=== PATIENT | male | born 1985 | race Caucasian/White ===

== ENCOUNTER 2023-07-23 15:46 | Emergency (ER) | payer MEDICAID, SELFPAY ==
[2023-07-23 16:00] VITALS: BP 146/100; BP 99/61; PULSE 71; PULSE 72; RESP 16; TEMP 36.6; O2SAT 96; O2SAT 97; BMI 31.1
--- NOTE | 2023-07-23 19:20 | ED.GENADULT ---
HPI - General Adult General Chief complaint: General Medical Stated complaint: abcess Time Seen by Provider: 07/23/23 19:20 History of Present Illness HPI narrative: The patient is a 38-year-old male who was currently an inpatient at the [facility]. He says that about 5 days ago he injected IV drugs into his left antecubital fossa. The next day he started to have signs of an infection which has been getting worse over the last several days. He has not had a fever. He has pain and swelling at the antecubital fossa but does not feel ill otherwise. He was sent to the emergency room from the [facility] for management of this acute medical issue. Related Data Previous Rx's ?Medication ?Instructions ?Recorded cephalexin 500 mg capsule 500 mg PO QID 10 days #40 caps 07/23/23 cephalexin 500 mg capsule 500 mg PO QID 10 days #40 caps 07/23/23 sulfamethoxazole 800 1 tab PO BID 10 days #20 tabs 07/23/23 mg-trimethoprim 160 mg tablet sulfamethoxazole 800 1 tab PO BID #20 tabs 07/23/23 mg-trimethoprim 160 mg tablet (Bactrim DS) Allergies Allergy/AdvReac Type Severity Reaction Status Date / Time No Known Allergies Allergy Verified 07/23/23 16:04 Review of Systems Review of Systems: Yes all other systems are reviewed and are negative [facility] Social History Social History Smoked in Last 30 Days: Yes Use of substances other than those prescribed or required for medical reasons: Yes Substance Use Type: Crack/Cocaine, Heroin and IV Drugs Last Used Substance: Days (ago) Advance Directives: No Advance Directives Information Provided: No Physical Exam ED Vital Signs: Vital Signs - 24 hr 07/23/23 16:00 07/23/23 19:31 07/23/23 21:11 Temperature 97.8 F 98.0 F 98.1 F Pulse Rate 72 58 62 Respiratory Rate 16 16 16 Blood Pressure 99/61 112/58 L 109/59 L Pulse Oximetry 96 99 97 Oxygen Delivery Method Room Air Room Air Room Air 07/23/23 22:20 Temperature 98.1 F Pulse Rate 62 Respiratory Rate 16 Blood Pressure 109/59 L Pulse Oximetry 97 Oxygen Delivery Method Room Air BMI result Body Mass Index 31.1 Const Other: The patient is awake, alert, pleasant, cooperative. He does not appear in acute distress. HENMT Other: Face is symmetrical. Mucous membranes moist. Eyes Other: Pupils are round equal, conjunctivae are clear, extraocular movements intact Neck Neck: Yes no JVD Resp Effort & Inspection: normal respiratory effort Auscultation: clear to auscultation bilaterally Cardio Rate: regular rate Rhythm: regular rhythm Heart sounds: S1 normal heart sound present and S2 normal heart sound present Skin Other: There is an area of redness and swelling and tenderness at the medial aspect of the right antecubital fossa. The swelling is fluctuant Neuro Other: The patient is awake and alert with a normal mental status. Normal function of the right hand. Medications Administered Discontinued Medications Generic Name Dose Route Start Last Admin Trade Name Freq PRN Reason Stop Dose Admin Cephalexin HCl 1,000 mg 07/23/23 20:28 07/23/23 20:43 Cephalexin 500 Mg Capsule PO 07/23/23 20:29 1,000 mg ONCE ONE Administration Hydromorphone HCl 1 mg 07/23/23 19:23 07/23/23 19:49 Hydromorphone Hcl 1 Mg/Ml Syringe IM 07/23/23 19:24 1 mg ONCE ONE Administration Protocol Ketorolac Tromethamine 30 mg 07/23/23 19:23 07/23/23 19:49 Ketorolac Tromethamine 30 Mg/Ml Vial IM 07/23/23 19:24 30 mg ONCE ONE Administration Lidocaine/Epinephrine 10 ml 07/23/23 19:24 07/23/23 19:55 Lidocaine Hcl 1%/Epi 1:100,000 10 Ml Vial INFILTRATI 07/23/23 19:25 10 ml ONCE ONE Administration Trimethoprim/Sulfamethoxazole 1 tab 07/23/23 20:28 07/23/23 20:43 Sulfamethox/Trimeth 800/160 Tablet PO 07/23/23 20:29 1 tab ONCE ONE Administration Procedures Abscess I/D Site: upper extremity Side (if applicable): right Local Anesthetic: lidocaine 1% and with epi Amount of anesthesia used (mL): 3 Technique: incised with blade Amount of fluid expressed (mL): 5 Sent for culture/gram staining?: Yes Packing used?: iodoform Medical Decision Making Medical Decision Making MDM Narrative: The patient is a 38-year-old male who was an IV drug user. He seems to have a soft tissue skin abscess of the right antecubital fossa at the site where he most recently injected IV drugs. A used a bedside ultrasound to confirm the presence of abscess fluid in the swelling. The patient requested pain medication prior to an incision and drainage process. He was given an IM injection of ketorolac and an IM injection of hydromorphone. I then prepped the antecubital fossa with Betadine. The swelling was anesthetized with lidocaine with epinephrine using a 30 gauge needle. Once I had fully anesthetize the skin around the abscess I incised the abscess with a # 11 blade and had immediate release of seropurulent fluid and blood. I expressed as much pus as I was able to. I probed the cavity with forceps. I then packed the abscess cavity with a small amount of iodoform gauze. The patient tolerated the procedure well. There was small amount of erythema around the abscess consistent with a localized cellulitis. The patient will be placed on cephalexin and trimethoprim sulfamethoxazole. Wound culture has been sent and my hope would be that 1 of these antibiotics could be stopped after the results of the wound culture available. The patient will be returned to his inpatient [facility], [facility]. Discharge Plan Discharge Clinical Impression: Abscess of arm, right Patient Disposition: [facility] Additional Instructions: Please provide cephalexin 4 times a day for 10 days, approximately every 6 hours. Additionally please provide sulfamethoxazole trimethoprim (Bactrim DS) 2 times a day. Please change the dressing daily and as needed. There is a packing in the abscess cavity which may be removed in 2 days if it does not fall out on its own before then. A wound culture was sent at the time of the procedure. Following the results of the wound culture being available it may be possible to stop 1 of these 2 antibiotics. My expectation is that this abscess with wound and he will without specific additional management aside from dressing changes and antibiotics. If there is concern about the wound you may contact the general surgery office for a follow up appointment. If acutely worse please return to the emergency room Prescriptions: New cephalexin 500 mg capsule 500 mg PO QID 10 Days Qty: 40 0RF sulfamethoxazole-trimethoprim 800-160 mg tablet 1 tab PO BID 10 Days Qty: 20 0RF cephalexin 500 mg capsule 500 mg PO QID 10 Days Qty: 40 0RF sulfamethoxazole-trimethoprim [Bactrim DS] 800-160 mg tablet 1 tab PO BID Qty: 20 0RF Referrals: [facility] [Outside] (arm abscess) Melchor Anthony MD [Physician] - (Left antecubital fossa abscess) Interventions: Acute Care Transfer Worksheet (ED) Last Done: 07/23/23 22:20 Discharge Date/Time: 07/23/23 22:22 Print Language: Nigerian
[2023-07-23 19:31] VITALS: BP 112/58; PULSE 58; RESP 16; TEMP 36.7; O2SAT 99
[2023-07-23] MEDS: Ketorolac Tromethamine 30 MG/ML VIAL IM (19:49)
[2023-07-23] MEDS: HYDROmorphone HCl 1 MG/ML SYRINGE IM (19:49)
[2023-07-23] MEDS: Lidocaine HCl 1%/Epi 1:100,000 10 ML VIAL INFILTRATI (19:55)
[2023-07-23] MEDS: cephALEXin 500 MG CAPSULE 1000 MG PO (20:43)
[2023-07-23] MEDS: Sulfamethox/Trimeth 800/160 TABLET 1 TAB PO (20:43)
[2023-07-23 21:11] VITALS: BP 109/59; PULSE 62; RESP 16; TEMP 36.7; O2SAT 97
--- NOTE | 2023-07-23 21:28 | PC.NURSE ---
Report given to MINDY Corral @ [facility]. Aware awaiting transport @ this time.
[2023-07-23 22:20] VITALS: BP 109/59; PULSE 62; RESP 16; TEMP 36.7; O2SAT 97
== END 2023-07-23 22:22 ==
PROVIDERS: Emergency Provider Emergency Medicine
DX: L02.413 Cutaneous abscess of right upper limb (principal)
CPT/HCPCS: 10060; 87070; 87205; 96372; 99285; J1170; J1885